=== PATIENT | male | born 1965 | race Caucasian/White ===

== ENCOUNTER 2017-10-13 14:30 | Outpatient (RCR) | payer MEDICAID, SELFPAY ==
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
--- NOTE | 2017-11-19 09:49 | HP.PTDCNRP_ITS ---
HP - Discharge Summary (1) - Patient Information EVERETT GALLARDO was seen in my office for initial evaluation on 09/24/17. The following Plan of Care was established for this patient: Initial Frequency: 2-3x /Week Initial Duration: 4-6 Weeks - Anticipated Interventions Patient/Client Instruction: Educate patient on: Condition, Plan of Care, Risk Factors, Benefits of Fitness Program For the Purpose of:: To improve self management Therapeutic Exercise to Include: Strength training, Body mechanics, Postural training, Flexibilty training, In an aquatic setting, Dynamic Lumbar Stabilization For the Purpose of:: To improve ability of physical actions for home/community/ work/leisure This patient was last seen in our office 10/13/17. Pertinent comments regarding their Physical therapy will appear below: This patient has not returned to Physical Therapy and is appropriate to return to MD for further follow-up as needed. At this point I will be discontinuing this patient from physical therapy. I would be happy to see this patient again in the future if found appropriate by the physician. Thank you! Steffany Gardner
== END 2017-10-13 19:00 | disposition home or self-care (01) ==
LOC: PT 14:30
PROVIDERS: Family Provider Family Medicine; PCP Family Medicine; Visit Provider Family Medicine
DX: M47.816 Spondylosis without myelopathy or radiculopathy, lumbar region (principal); G89.29 Other chronic pain
CPT/HCPCS: 97113; 97162; 97530

== ENCOUNTER → 2020-03-22 10:15 | Outpatient (CLI) | payer MEDICAID, SELFPAY ==
[2017-10-10 10:12] VITALS: BMI 24.3
[2020-03-22 12:36] LABS: Amphetamine Urine VISTA NEGATIVE (<1000 ng/mL); Barbiturate Urine VISTA NEGATIVE (< 200 ng/mL); Benzodiazepine Urine VISTA NEGATIVE (< 200 ng/mL); Cocaine Urine VISTA NEGATIVE (< 300 ng/mL); Ecstacy Urine VISTA NEGATIVE (< 500 ng/mL); Methadone Urine VISTA NEGATIVE (< 300 ng/mL); PCP Urine VISTA NEGATIVE (< 25 ng/mL); THC Urine VISTA NEGATIVE (< 50 ng/mL); Vista UDS pH Range 6
== END ==
PROVIDERS: PCP Family Medicine; Visit Provider Family Medicine
DX: Z51.81 Encounter for therapeutic drug level monitoring (principal); Z79.899 Other long term (current) drug therapy
CPT/HCPCS: 80307

== ENCOUNTER 2022-07-05 05:42 | Emergency (ER) | payer MEDICAID, SELFPAY ==
[2022-07-05 05:43] VITALS: BP 103/72; PULSE 77; RESP 18; TEMP 36.2; O2SAT 96; BMI 25.4
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
[2022-07-05 06:09] LABS: Absolute Neutrophil Count 5.3 X10^3/uL (2.0-7.7); Basophil# 0.06 X10^3/uL; Basophil% 0.6 % (0-1); Eosinophil# 0.57 X10^3/uL; Hematocrit 35.3 % (40-54); Hemoglobin 11.7 g/dL (13.0-16.5); Lymphocyte % 28.6 % (19-41); Mean Corp Hgb Conc 33.1 g/dL (32-36); Mean Corpuscular Hgb 29.1 pg (27.0-32.0); Mean Corpuscular Volume 87.8 fL (80-94); Mean Platelet Vol. 8.9 fl (6.2-12.0); Monocyte% 7.4 % (0-10); NRBC Flagged by Analyzer 0 % (0-5); Neutrophil # 5.32 X10^3/uL (2.7-7.7); Neutrophil % 56.4 % (47-70); Platelet Count 275 K/mm3 (150-450); RBC Distribution Width CV 14.2 % (11.6-14.6); RBC Distribution Width SD 45.6 fl (35.1-43.9); Red Blood Count 4.02 M/mm3 (4.6-6.2); White Blood Count 9.4 K/mm3 (4.4-11.0)
[2022-07-05] MEDS: Ondansetron 4 MG/2 ML Vial IV (06:09)
[2022-07-05] MEDS: HYDROmorphone 1 MG/ML Syringe 0.5 MG IV (06:09)
[2022-07-05 06:18] LABS: International Normalized Ratio 1.1; Prothrombin Time (Protime)PT. 13.8 SECONDS (11.7-14.9)
[2022-07-05 06:19] LABS: Partial Thromboplast Time 32.8 Seconds (24.1-36.2)
[2022-07-05 06:21] LABS: Anion Gap 5 (5-15); BUN 17 mg/dL (7-18); Calcium,Total 8.3 mg/dL (8.5-10.1); Chloride 107 mmol/L (98-107); Creatinine, Serum 0.68 mg/dL (0.70-1.30); EST Glomerular Filtration Rate 128 mL/min (>60); Est Glom Filt Rate - Afr Amer 154 mL/min (>60); Estimated Creatinine Clearance 112.06 ml/min; Glucose 77 mg/dL (74-106); Potassium 3.5 mmol/L (3.5-5.1); Sodium Level 140 mmol/L (136-145)
[2022-07-05 06:24] LABS: Alcohol, Blood (Medical)-Serum < 3.0 mg/dL
--- NOTE | 2022-07-05 06:49 | ED.RN ---
PT WAS OVER IN CT SCAN,BUT WOULD NOT HOLD STILL.PT BROUGHT BACK TO THE ED ROOM 2.
[2022-07-05] MEDS: HYDROmorphone 1 MG/ML Syringe IV ×2 (07:06→08:40)
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
--- NOTE | 2022-07-05 07:29 | ED.RN ---
pt refusing to roll on back, yelling at this RN about being mean. Attempted to explain that he needs to be on his back for imaging. pt continues to yell.
[2022-07-05] MEDS: 0.9% Normal Saline 1,000 ML 150 ML IV (07:30)
[2022-07-05] MEDS: HYDROmorphone 0.5 MG/0.5 ML SYRINGE IV (08:06)
[2022-07-05 08:15] VITALS: BP 115/53; O2SAT 99
[2022-07-05 08:30] VITALS: BP 115/73; PULSE 79; RESP 14; O2SAT 95
--- NOTE | 2022-07-05 08:37 | NURSING ---
CALLED [facility], ANMOL IS WITH IN THE HOUR
[2022-07-05 08:41] VITALS: BP 116/77; PULSE 87; O2SAT 97
--- NOTE | 2022-07-05 09:43 | NURSING ---
CALLED [facility], ETA IS 3-4 MIN
== END 2022-07-05 10:50 | disposition short-term general hospital (02) ==
PROVIDERS: Emergency Provider Emergency Medicine; PCP Family Medicine; Visit Provider Emergency Medicine
DX: S72.001A Fracture of unspecified part of neck of right femur, initial encounter for closed fracture (principal); S00.81XA Abrasion of other part of head, initial encounter; V29.99XA Rider (driver) (passenger) of other motorcycle injured in unspecified traffic accident, initial encounter; F17.210 Nicotine dependence, cigarettes, uncomplicated; V89.2XXA Person injured in unspecified motor-vehicle accident, traffic, initial encounter
CPT/HCPCS: 70450; 71260; 72125; 74177; 80048; 82077; 85025; 85610; 85730; 96361; 96374; 96375; 96376; 99285; J7030; Q9967; A4216; J2405

== ENCOUNTER 2022-07-14 08:36 | Emergency (ER) | payer MEDICAID, SELFPAY ==
[2022-07-14 08:37] VITALS: BP 168/101; PULSE 120; RESP 24; TEMP 36.4; O2SAT 96; BMI 23.3
[2022-07-14 08:47] VITALS: RESP 22
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
[2022-07-14] MEDS: LORazepam 1 MG Tablet PO (08:53)
== END 2022-07-14 09:04 | disposition home or self-care (01) ==
PROVIDERS: Emergency Provider Emergency Medicine; PCP Family Medicine; Visit Provider Emergency Medicine
DX: Z76.0 Encounter for issue of repeat prescription (principal); F41.9 Anxiety disorder, unspecified; F17.210 Nicotine dependence, cigarettes, uncomplicated; N40.0 Benign prostatic hyperplasia without lower urinary tract symptoms; R52 Pain, unspecified
CPT/HCPCS: 99284

== ENCOUNTER → 2024-12-09 | Outpatient (CLI) | payer MEDICAID, SELFPAY ==
[2024-12-09 17:44] LABS: Absolute Lymphocyte Count 1.38 X10^3/uL (0.83-4.51); Absolute Neutrophil Count 6.7 X10^3/uL (2.0-7.7); Basophil# 0.05 X10^3/uL; Basophil% 0.6 % (0-1); Eosinophil# 0.24 X10^3/uL; Eosinophils% 2.7 % (0-5); Hematocrit 42.7 % (40-54); Hemoglobin 14.3 g/dL (13.0-16.5); Lymphocyte # 1.38 X10^3/ul (0.83-4.51); Lymphocyte % 15.4 % (19-41); Mean Corp Hgb Conc 33.5 g/dL (32-36); Mean Corpuscular Hgb 30.3 pg (27.0-32.0); Mean Corpuscular Volume 90.5 fL (80-94); Mean Platelet Vol. 11.2 fl (6.2-12.0); Monocyte# 0.57 X10^3/uL; Monocyte% 6.3 % (0-10); NRBC Flagged by Analyzer 0 % (0-5); Neutrophil # 6.71 X10^3/uL (2.7-7.7); Neutrophil % 74.7 % (47-70); Platelet Count 280 K/mm3 (150-450); RBC Distribution Width CV 14.8 % (11.6-14.6); RBC Distribution Width SD 49.2 fl (35.1-43.9); Red Blood Count 4.72 M/mm3 (4.6-6.2)
[2024-12-09 19:16] LABS: Amphetamine Urine PRESUMPTIVE POSITIVE (<1000 ng/mL); Barbiturate Urine NEGATIVE (< 200 ng/mL); Benzodiazepine Urine NEGATIVE (< 200 ng/mL); Buprenorphine Urine PRESUMPTIVE POSITIVE (< 200 ng/mL); Cocaine Urine NEGATIVE (< 300 ng/mL); Fentanyl, Urine NEGATIVE; Methadone Urine NEGATIVE (< 300 ng/mL); Opiates Urine NEGATIVE (< 300 ng/mL); Oxycodone, Urine NEGATIVE (< 100 ng/mL); PCP Urine NEGATIVE (< 25 ng/mL); THC Urine PRESUMPTIVE POSITIVE (< 50 ng/mL)
[2024-12-09 21:10] LABS: ALB/GLOB Ratio 1.5 RATIO (0.9-2.4); AST(SGOT) 37 U/L (<=37); Alanine Aminotransfer ALT/SGPT 34 U/L (<=46); Albumin, Serum 4.1 g/dL (3.4-4.8); Alkaline Phosphatase 57 U/L (40-129); Anion Gap 11 (5-15); BUN 7 mg/dL (4-19); BUN/Creat Ratio 9.7 RATIO (10-20); Calcium,Total 9.3 mg/dL (7.6-11.0); Carbon Dioxide 23.5 mmol/L (21.0-32.0); Chloride 105 mmol/L (98-108); Cholesterol 114 mg/dL (<=200); Creatinine, Serum 0.72 mg/dL (0.70-1.20); EST Glomerular Filtration Rate 105 (>60); Globulin 2.7 g/dL (2.2-4.2); Glucose 115 mg/dL (70-99); High Density Lipoprotein 49 mg/dL; Low Density Lipoprotein Calc. 55 mg/dL; PSA,Total - Annual Screen 0.59 ng/mL (0.02-4.00); Potassium 4.6 mmol/L (3.3-5.1); Protein, Total 6.8 g/dL (5.9-8.4); Sodium Level 139 mmol/L (133-145); Total Bilirubin 0.84 mg/dL (0.00-1.30); Triglycerides 53 mg/dL; Very Low Density Lipoprotein 11 mg/dL (5-40); cholesterol:hdl ratio screen 2.35
== END | disposition home or self-care (01) ==
LOC: BFHLAB 15:49
PROVIDERS: PCP Family Medicine; Visit Provider Family Medicine
DX: Z00.00 Encounter for general adult medical examination without abnormal findings (principal); Z79.899 Other long term (current) drug therapy; Z12.5 Encounter for screening for malignant neoplasm of prostate
CPT/HCPCS: 84153; 36415; 80053; 80061; 80307; 85025; G0103

== ENCOUNTER 2025-03-07 17:32 | Emergency (ER) | payer MEDICAID, SELFPAY ==
[2025-03-07 17:32] VITALS: BP 144/96; PULSE 71; RESP 16; TEMP 36.2; O2SAT 100; BMI 21.7
--- NOTE | 2025-03-07 18:24 | RAD_ITS ---
PROCEDURE: CHEST PA AND LATERAL 03/07/2025 REASON FOR EXAM: INJURY PAIN TECHNIQUE: CHEST PA AND LATERAL COMPARISON: CT from 07/05/2022 FINDINGS: No focal consolidation. No pleural effusion or pneumothorax. Cardiac silhouette is within normal limits. Mild compression deformity of the midthoracic vertebral body, likely T7 or T8, of indeterminate acuity. Multilevel chronic appearing right lateral rib fractures although consider dedicated rib x-ray series or CT for further evaluation.. RAD/Chest PA and Lateral IMPRESSION: No focal consolidations. No pneumothorax. Mild compression deformity of the midthoracic vertebral body, likely T7 or T8, of indeterminate acuity. Multilevel chronic appearing right lateral rib fractures although consider dedi cated rib x-ray series or CT for further evaluation.. Reading Location: [id number]
[2025-03-07 20:23] VITALS: BP 144/95; PULSE 64; RESP 18; O2SAT 97
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
[2025-03-07] MEDS: HYDROcodone Bitartrate/Apap 5/325 Tablet PO (22:22)
[2025-03-07 22:54] VITALS: BP 138/70; PULSE 64; RESP 98; TEMP 36.2; O2SAT 97
== END 2025-03-07 22:55 | disposition home or self-care (01) ==
PROVIDERS: Emergency Provider Emergency Medicine; PCP Family Medicine; Visit Provider Emergency Medicine
DX: S20.214A Contusion of middle front wall of thorax, initial encounter (principal); V86.56XA Driver of dirt bike or motor/cross bike injured in nontraffic accident, initial encounter; Y93.55 Activity, bike riding; N40.0 Benign prostatic hyperplasia without lower urinary tract symptoms; F17.200 Nicotine dependence, unspecified, uncomplicated; Z79.899 Other long term (current) drug therapy
CPT/HCPCS: 71046; 99283

== ENCOUNTER → 2025-03-22 | Outpatient (CLI) | payer OTHER, MEDICAID, SELFPAY ==
--- NOTE | 2025-03-22 10:32 | CT_ITS ---
PROCEDURE: CHEST WITH CONTRAST 03/22/2025 REASON FOR EXAM: CHEST PAIN TECHNIQUE: CHEST WITH CONTRAST Coronal and Sagittal reconstruction series were provided. CONTRAST: Isovue 300 VOLUME: 100 mL One or more dose reduction techniques were used (e.g., Automated exposure control, adjustment of the mA and/or kV according to patient size, use of iterative reconstruction technique). RADIATION DOSE SUMMARY: CTDlvol: 20 mGy DLP: 252 mGycm COMPARISON: Chest CT 07/05/2022 FINDINGS: Central airways are patent. Well inflated lungs. No consolidation, effusion, or pneumothorax. Unremarkable base of neck and axilla. Mild axillary adenopathy is usually reactive in etiology. Normal esophagus. Normal heart size. No acute vascular pathology. No acute chest wall findings. Diffuse hepatic steatosis. No acute upper abdominal findings. Recent sternal fracture with some healing. Multiple old rib fractures. T7 and T8 compression deformities, new since the previous examination but not definitely acute. Correlate with any symptoms. CT/Chest WITH Contrast IMPRESSION: Healing sternal fracture which may be a cause of chest pain. Reading Location: [place] [id number]
== END | disposition home or self-care (01) ==
PROVIDERS: PCP Family Medicine; Referring Provider Family Medicine; Visit Provider Family Medicine
DX: R07.9 Chest pain, unspecified (principal)
CPT/HCPCS: 71260; Q9967; A4216